=== PATIENT | female | born 1990 | race Caucasian/White ===

== ENCOUNTER 2018-10-24 13:17 | Emergency (ER) | payer SELFPAY ==
[2018-10-24 13:16] VITALS: PULSE 96
[2018-10-24 13:18] VITALS: BP 156/137; PULSE 98
[2018-10-24 13:20] VITALS: BP 133/78; PULSE 82; PULSE 86; RESP 17; O2SAT 97
[2018-10-24 13:21] VITALS: PULSE 90; RESP 13
[2018-10-24] MEDS: Normal Saline Flush 10 ML SYR IVP (13:25)
[2018-10-24] MEDS: Normal Saline 1,000 ML 1000 ML IV (13:25)
[2018-10-24 13:30] VITALS: BP 133/78; PULSE 82
--- NOTE | 2018-10-24 13:32 | ED.GENADUL_ITS ---
Discharge Plan Disposition Patient Disposition: AGAINST MEDICAL ADVICE Condition: Stable Discharge Details Chief Complaint: OD/Poison Clinical Impression: Opioid overdose Primary Care Provider: Unknown,Unknown ED Provider: Barbie Summers Discharge Instructions Instructions: Opioid Overdose (ED) Additional Instructions: Understand the risk of leaving the hospital that you may from a fentanyl overdose once the Narcan wears off. Follow-up with your primary care doctor in 2 days. Return immediately to the emergency department with any worsening or new concerning symptoms. Discharge Data Discharge Physician: Barbie Summers Medical Decision Making 28-year-old female who presented as an overdose outside the ED. Patient was noted to be unresponsive, not breathing but with a pulse. Skin mottled on head and neck. Patient given 2 mg nasal Narcan outside the ED, another 2 mg after placed on a stretcher in route to in ED room, and another 2 mg while in ED room 2. Pt placed on monitor and nonrebreather defibrillator pads placed. Pt noted to have snoring respirations, HR 90s-100s. Pt subsequently awoke after a total of 6mg nasal narcan given. She is now attempting to remove all tubing and IV lines. She admitted to smoking fentanyl just prior to arrival. She denied any other drug use. She denies any medical history or other medications. Patient refusing to stay and demanding IV and leads be removed. Patient removed leads herself and attempted to remove IV. Patient was informed that the Narcan can wear off and she could subsequently stop breathing after a fentanyl overdose. The risks of and disability were explained and patient was able to verbalize back to me her understanding of the risks of and disability due to opiate overdose. She demonstrates capacity to make decisions. AMA form signed. She was given nasal Narcan to go. She was instructed to follow-up with primary care doctor and return here at any time. HPI General Date/Time Provider Initiated Documentation: 10/24/18 13:25 . HPI Narrative: Patient presented to ED as unresponsive in the back of the car by her friends. Staff went out to evaluate patient and she was noted to be unresponsive and subsequently stopped breathing. Her skin around her face and neck became mottled and bluish. She was noted to have a pulse. Patient was given 2 mg nasal Narcan in the car and carried out of the back of the car by ED staff and placed on a stretcher. Past medical history: None Surgical history: None Social history: Smokes tobacco Meds: None Allergies: NKDA PCP: Review of Systems Review of Systems Unobtainable due to mental status Exam Const General: other (unresponsive) Orientation: obtunded [facility] Head: normal to inspection General nose exam: external nose normal Face and sinus: normal facial exam Mouth: mucous membranes dry Eyes General: appearance normal, both eyes and all related structures Eyelids: eyelids normal Pupils: pinpoint bilaterally Neck Neck: normal visual inspection Chest Chest: normal inspection of the chest Resp Effort & Inspection: other (snoring respirations) Cardio Rate: regular rate Rhythm: regular rhythm GI Inspection: normal to inspection Palpation: soft, not firm, no guarding, no hepatosplenomegaly, no masses and nontender Auscultation: normal bowel sounds Skin General skin exam: no rashes or lesions noted and mottling (head and neck) Neuro General: obtunded Extrem General: normal to inspection Psych Appearance: disheveled
[2018-10-24 14:49] VITALS: RESP 0
--- NOTE | 2018-10-24 15:34 | NUR.NOTE ---
1530: spoke with patients father. encouraged further treatment. advised of harry in backpack. provided [facility] information. discussed option for recovery coaches.
== END 2018-10-24 13:40 | disposition left against medical advice (07) ==
PROVIDERS: Emergency Provider Physician Assistant
DX: T40.4X2A Poisoning by other synthetic narcotics, intentional self-harm, initial encounter (principal); Z53.29 Procedure and treatment not carried out because of patient's decision for other reasons
CPT/HCPCS: 80053; 99283; 83735; 84484; 84703; 85025; J2310

== ENCOUNTER 2020-01-16 01:46 | Emergency (ER) | payer MEDICAID, SELFPAY ==
[2020-01-16 01:50] VITALS: BP 128/65; PULSE 83; RESP 18; TEMP 36.2; O2SAT 98
--- NOTE | 2020-01-16 02:06 | W.ED.GENAD ---
Discharge Plan Disposition Patient Disposition: HOME Condition: Stable Discharge Details Chief Complaint: Orthopedic Clinical Impression: Bilateral arm pain Primary Care Provider: None,None ED Provider: Devaughn Hein Discharge Instructions Additional Instructions: Take 1000mg tylenol and 600mg ibuprofen every 6 hours try to avoid injecting drugs into the arms or other body parts as permanent disability can occur Follow up with a primary care provider if not better within 1-2 weeks return to the emergency department for high fevers, redness spreading up the arm or swelling of the arm Medical Decision Making 29 yo female with hx of drug abuse primarily fentanyl per patient comes in with 1 day of bilateral forearm pain. Denies any falls and no other trauma, no fevers or red rashes. She statse she smokes the fentanyl and sometimes injects into the skin and did this to the forearms several days ago, denies any drug use today. She is caox4 with clear speech though is anxious and fidgets alot. She denies si/hi. She has no swelling of the arms, full rom, no erythema, multiple areas of the skin where she injects without evidence of infection, no crepitus or sever pain, normal sensation and pulses. She states the pain is in the anterior mid forearms and has no abnormalities in this area. Could be strain vs neuropathy but no findings to suggest fracture and do not feel xrays indiated and no findings to suggest cellulitis vs nec fasc. Advised to try ibuprofen and tylenol, see pcp if not better and return precautions given. She was offered executive coach and she declined. She was offered a ride to [facility] but she also declined. She has capacity to make her own decisions. Differential Diagnosis Differential Diagnosis: strain, neuropathy, spasm, cellulitis [facility] General Mode of arrival: ambulatory. Date/Time Provider Initiated Documentation: 01/16/20 01:47. Limitations to Documentation: no limitations. Information obtained by: patient. History of Present Illness 29 year old F presents to the emergency department with the chief complaint of bilateral arm pain, described as moderate, Quality is described as aching, and is localized to the left, right and upper extremity. Patient reports no radiation. Patient started experiencing this day(s) (1) and it has been constant. No relieving factors improve symptom(s), No exacerbating factors reported . Patient notes no other symptoms.. Patient did receive the following treatments prior to arrival, none General Stated Complaint: Orthopedic IVY: 4 Review of Systems All systems reviewed & are unremarkable except as noted in HPI and below Constitutional Constitutional: Denies chills, Denies fever(s) and Denies weakness Cardiovascular Cardiovascular: Denies chest pain and Denies dyspnea Respiratory Respiratory: Denies cough and Denies dyspnea Gastrointestinal Gastrointestinal: Denies abdominal pain, Denies nausea and Denies vomiting Musculoskeletal Musculoskeletal: Denies joint swelling Neurologic Neurologic: Denies weakness [facility] Social History Smoking/Tobacco Use Status: Current every day Tobacco Type: cigarettes Alcohol Intake: never Drug use: Daily Substance use type: opiates, IV drugs and methamphetamine Do you feel safe at home: Yes Do you feel safe in your relationship?: Yes Exam Const General: anxious Orientation: alert [facility] Head: normal to inspection Ears: external ears normal General nose exam: external nose normal Mouth: moist mucous membranes Eyes General: appearance normal, both eyes and all related structures Neck Neck: normal visual inspection Resp Effort & Inspection: normal respiratory effort and able to speak in complete sentences Cardio Rate: regular rate Skin General skin exam: elasticity normal Neuro General: alert and oriented x3 Extrem General: normal to inspection Psych Mental Status: mental status grossly normal Course Vital Signs Vital signs: Vital Signs Temperature 36.2 C L 01/16/20 01:50 Pulse 83 01/16/20 01:50 Respiratory Rate 18 01/16/20 01:50 Blood Pressure 128/65 01/16/20 01:50 Pulse Oximetry 98 01/16/20 01:50 Temperature 36.2 C L 01/16/20 01:50 Temperature Source Temporal Artery Scan 01/16/20 01:50 Pulse 83 01/16/20 01:50 Respiratory Rate 18 01/16/20 01:50 Respiratory Effort 01/16/20 01:55 Blood Pressure 128/65 01/16/20 01:50 Pulse Oximetry 98 01/16/20 01:50 Oxygen Delivery Method Room Air 01/16/20 01:50 Oxygen Flow Rate 0 01/16/20 01:50
[2020-01-16] MEDS: Ibuprofen 600 MG TAB PO (02:13)
== END 2020-01-16 02:18 | disposition home or self-care (01) ==
LOC: ER 02:25
PROVIDERS: Emergency Provider Emergency Medicine
DX: M79.601 Pain in right arm (principal); M79.602 Pain in left arm; F11.20 Opioid dependence, uncomplicated
CPT/HCPCS: 99283